=== PATIENT | female | born 1970 | race Caucasian/White ===

== ENCOUNTER → 2017-08-14 | Outpatient (REF) ==
--- NOTE | 2017-08-14 15:09 | REP ---
LUMBAR SPINE SERIES: Three views. HISTORY: Degenerative disc disease. COMPARISON STUDY: August 17, 2015. FINDINGS: Transitionalized lumbosacral junction is again noted with sacralization of the transverse processes at L5 and right-sided fusion. This is unchanged. There are several old healed rib fractures on the right posteriorly affecting the 9th, 10th, and 11th ribs also unchanged. Lumbar vertebral body heights are preserved. There is no evidence of spondylolysis but there is a L4-5 spondylolisthesis 8 mm in diameter. This appears more prominent than on the prior study when it measured 4 mm. There is degenerative narrowing of the L4-5 disc. There is evidence of osteoarthritic facet disease at L4-5 bilaterally. Mild narrowing is seen at the L3-4 disc. Sacrum and SI joints are intact. Visualized bowel gas pattern is unremarkable. IMPRESSION: Degenerative disc disease at L4-5 with osteoarthritic facet changes and a degenerative 8 mm grade 1 L4-5 spondylolisthesis. This has progressed since the August 17, 2015 prior study. Transitional lumbosacral junction is seen. Old healed right-sided rib fractures are seen. Signed by Alexx Davis MD 08/14/2017 03:19 P
== END ==
LOC: M SMT 12:20
PROVIDERS: ATTEND Internal Medicine
DX: M51.36 Other intervertebral disc degeneration, lumbar region (principal)

== ENCOUNTER → 2021-06-13 | Outpatient (REF) ==
--- NOTE | 2021-06-13 12:17 | REP ---
INDICATION: OSTOPORSIS COMPARISON: 08/14/2017 TECHNIQUE: AP, lateral, coned-down views of the lumbar spine. FINDINGS: Three views of the lumbosacral spine demonstrate the patient to be status post posterior fixation and laminectomy at L4-S1. No acute fracture/compression injury or acute subluxation. Mild endplate sclerosis and disc space narrowing noted at T12-L1 and L3-4 unchanged from prior examination. IMPRESSION: 1. No acute fracture / compression injury or subluxation. 2. Posterior fixation at L4-S1. <Electronically signed by Hayden Carrillo > 06/13/21 [id number]
--- NOTE | 2021-06-13 12:18 | REP ---
INDICATION: OSTOPORSIS COMPARISON: None. TECHNIQUE: Internal rotation, external rotation, and Y view. FINDINGS: Osteopenia and degenerative changes along with old injury involving the distal clavicle at the acromioclavicular joint with heterotopic ossification noted. Osteopenia and degenerative changes as well as old injury identified involving the humeral head/neck. These findings require correlation as subtle superimposed acute injury cannot definitively be excluded. Subacromial space is normal. No subacromial calcifications are identified to suggest obvious tendinopathy. IMPRESSION: Evidence for osteopenia and old trauma. Correlation is required to exclude the possibility of superimposed acute injury to the proximal humerus. <Electronically signed by Hayden Carrillo > 06/13/21 [id number]
== END ==
LOC: M PLAIMG 11:16
PROVIDERS: ATTEND Internal Medicine
DX: M81.0 Age-related osteoporosis without current pathological fracture (principal)